=== PATIENT | female | born 1995 | race Caucasian/White ===

== ENCOUNTER → 2018-09-01 | Outpatient (CLI) | payer OTHER ==
[2018-09-01 13:50] LABS: BASO % 0.3 % (0.0-1.0); EOS # 0.1 10^3/uL (0.0-0.50); HEMATOCRIT 39.7 % (36.0-47.0); HEMOGLOBIN 12.9 g/dl (12.0-15.5); LYMPH # 2.1 10^3/uL (1.5-6.5); LYMPH % 29.9 % (24.0-44.0); MEAN CORPUSCULAR HGB CONC 32.5 g/dl (32.0-36.5); MEAN CORPUSCULAR VOLUME 86.3 fl (80.0-96.0); MONO # 0.5 10^3/uL (0.0-0.8); MONO % 6.6 % (0.0-5.0); NEUTROPHILS # 4.4 10^3/uL (1.8-7.7); NEUTROPHILS % 61.8 % (36.0-66.0); PLATELET COUNT, AUTOMATED 348 10^3/uL (150-450); WHITE BLOOD COUNT 7.1 10^3/uL (4.0-10.0)
[2018-09-01 13:58] LABS: ALT/SGPT 19 U/L (12-78); BILIRUBIN,TOTAL 0.3 MG/DL (0.2-1.0); BLOOD UREA NITROGEN 8 MG/DL (7-18); CALCIUM LEVEL 9.5 MG/DL (8.5-10.1); CARBON DIOXIDE LEVEL 25 MEQ/L (21-32); CHLORIDE LEVEL 105 MEQ/L (98-107); CHOLESTEROL LEVEL 154 MG/DL (<200); CREATININE FOR GFR 0.72 MG/DL (0.55-1.30); FERRITIN 21 NG/ML (8-252); FREE T4 1.29 NG/DL (0.76-1.46); GLOMERULAR FILTRATION RATE > 60.0 (>60); GLUCOSE, FASTING 83 MG/DL (70-100); HDL CHOLESTEROL 70 MG/DL (>40); IRON (FE) 109 UG/DL (50-170); LDL CHOLESTEROL 63 MG/DL (<100); NON-HDL-C 84 MG/DL; PERCENT SATURATION 24.7 % (13.2-45.0); POTASSIUM SERUM 3.8 MEQ/L (3.5-5.1); SODIUM LEVEL 137 MEQ/L (136-145); TOTAL IRON BINDING CAPACITY 442 UG/DL (250-450); TOTAL PROTEIN 7.5 GM/DL (6.4-8.2); TRIGLYCERIDES LEVEL 104 MG/DL (<150)
== END ==
LOC: M LRY 09:58
PROVIDERS: ATTEND Family Medicine
DX: Z13.29 Encounter for screening for other suspected endocrine disorder (principal)

== ENCOUNTER → 2018-11-25 | Outpatient (CLI) | payer OTHER ==
[~2018-11-25] MED LIST: ISOVUE-300 61% 100ML VIAL (Q9967) As Ordered ONE; MONOTAB PO; SERT-155 PO; TRAZ-252 PO
--- NOTE | 2018-11-25 16:35 | REP ---
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 Technique: Intravenous pyelogram study using 100 ml Isovue 300 intravenous contrast material. Findings: Multiple radiographs of the abdomen and pelvis to include the kidneys/ureters and bladder at 0 minutes, 5 minutes, and 10 minutes after the administration of intravenous contrast material demonstrates normal appearance and positioning of the bilateral kidneys/ureters and bladder. No congenital abnormality or malformation to the urinary tract is appreciated. Impression: Normal intravenous pyelogram study with normal appearance in positioning of the bilateral kidneys/ureters and bladder. Electronically Signed by Gabriele Franklin MD 11/25/2018 04:26 P
== END ==
LOC: M RAD 08:14
PROVIDERS: ATTEND Obstetrics & Gynecology
DX: Q52.8 Other specified congenital malformations of female genitalia (principal)
CPT/HCPCS: 74400; Q9967

== ENCOUNTER 2018-12-17 07:18 | Day surgery (SDC) | payer OTHER ==
[~2018-12-17] VITALS: Ht 167.6 cm; Wt 62.1 kg
[~2018-12-17 07:18] MED LIST changes: -ISOVUE-300 61% 100ML VIAL (Q9967) As Ordered ONE; +LIDOCAINE 1% MDV 20ML VIAL SQ PRN; +LR 1,000 ML IV ONE
[2018-12-17 08:00] LABS: URINE PREG TEST NEGATIVE (NEGATIVE)
[2018-12-17] MEDS ORDERED: PROPOFOL 200 MG/20 ML VIAL As Ordered ONE ×2 (08:19→08:21)
[2018-12-17] MEDS ORDERED: KETOROLAC 60 MG/2 ML VIAL (J1885) As Ordered ONE (08:21)
[2018-12-17] MEDS ORDERED: MIDAZOLAM INJ 2 MG/2 ML VIAL (J2250) As Ordered ONE (08:22)
[2018-12-17] MEDS ORDERED: ONDANSETRON 4MG/2ML VIAL (J2405) As Ordered ONE (08:22)
[2018-12-17] MEDS ORDERED: dexameTHASONE 4 MG/ML 1ML VIAL (J1100) As Ordered ONE (08:22)
[2018-12-17] MEDS ORDERED: LIDOCAINE 2% INJ 100 MG/5 ML SDV (FOR ANES.) As Ordered ONE (08:22)
[2018-12-17] MEDS ORDERED: fentaNYL 100 MCG/2 ML INJECTION (J3010) As Ordered ONE (08:23)
[2018-12-17] MEDS ORDERED: IBUPROFEN 600 MG TAB PO PRN ×2 (10:30→18:00)
[2018-12-17] MEDS ORDERED: fentaNYL 100 MCG/2 ML INJECTION (J3010) IV PRN (10:30)
[2018-12-17] MEDS ORDERED: ONDANSETRON 4MG/2ML VIAL (J2405) IV PRN (10:30)
[2018-12-17] MEDS ORDERED: PERCOCET 5MG/325MG TAB PO PRN (10:30)
[2018-12-17] MEDS ORDERED: LR 1,000 ML IV SCH ×2 (10:30)
[2018-12-17 11:00] VITALS: BP 117/73
--- NOTE | 2018-12-18 10:40 | RO ---
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 FINDINGS: As expected. Fortunately, the patient does not appear to have any other vaginal or cervical abnormalities. Exam under anesthesia found no evidence of vaginal septum. She had a single nulliparous cervix without lesion and the microperforate hymen as expected. PROCEDURE: Hymenectomy. SURGEON: Gail Munson MD FRINGE WEAVER: None. ANESTHESIA: Laryngeal mask airway (LMA). SPECIMENS: None. BRIEF DESCRIPTION OF PROCEDURE AND FINDINGS: Zoila was brought to the operating room where sufficient LMA anesthesia was induced. She was prepped, draped and positioned in the usual sterile fashion. We then grasped the microperforate hymen with a hemostat just to stabilize it so that we could then use the scalpel to make stellate incisions around the hymen being careful to free the hymenal tissue from the periurethral tissues, for instance, and not to place any of the incisions at 6 o'clock. So she had an incision at about 1:30, about 2:30 a little thicker there, about 4:30 and then about 7:00, 10:30. We took interrupted stitches of #4-0 Vicryl at the base of these for hemostasis. There was ones with longer pieces that we trimmed off, but by and large the purpose of course was to result in a functional stretchy tissue without giving an annular scar, so we made the stellate incisions, controlled the bleeding, examined and made sure that we had removed that restriction to stretching at the introitus. We then had a speculum in the room and did both a bimanual and a speculum exam. We were able to confirm a single nulliparous cervix without any visible anomaly. There were no evidence of vaginal septum and no evidence of pelvic mass, etc. Of course, we disposed of the speculum because we had not prepped the apex of the vagina as is appropriate. We then reevaluated and confirmed good hemostasis at our previous dissection and ended the case. ESTIMATED BLOOD LOSS FOR PROCEDURE: Maybe 5 mL. FLUID REPLACEMENT: Crystalloid. COMPLICATIONS: None. CONDITION AND DISPOSITION: Zoila tolerated the procedure well and was recovering in the recovery room in good condition.
== END 2018-12-17 11:25 | disposition home or self-care (01) ==
LOC: M SDC 07:18
PROVIDERS: ATTEND Obstetrics & Gynecology
DX: Q52.3 Imperforate hymen (principal); F41.9 Anxiety disorder, unspecified; F32.9 Major depressive disorder, single episode, unspecified; Z91.040 Latex allergy status; Z79.899 Other long term (current) drug therapy; F17.210 Nicotine dependence, cigarettes, uncomplicated
CPT/HCPCS: 56620; 84703; J1100; J1885; J2250; J2405; J3010

== ENCOUNTER → 2019-08-26 | Outpatient (REF) | payer OTHER ==
[~2019-08-26] MED LIST changes: -LIDOCAINE 1% MDV 20ML VIAL SQ PRN; -LR 1,000 ML IV ONE; -SERT-155 PO; +SERT50TA29 PO
[2019-08-26 21:20] LABS: CHLAMYDIA DNA AMPLIFICATION NEGATIVE (NEGATIVE); GC DNA AMPLIFICATION NEGATIVE (NEGATIVE)
== END ==
LOC: M SFHCWAGY 17:13
PROVIDERS: ATTEND Nurse Practitioner Family
DX: Z11.3 Encounter for screening for infections with a predominantly sexual mode of transmission (principal); Z12.4 Encounter for screening for malignant neoplasm of cervix
CPT/HCPCS: 87491; 87591; G0123; G0463

== ENCOUNTER → 2020-06-29 | Outpatient (CLI) | payer OTHER ==
[2020-06-29 11:07] LABS: BASO % 0.7 % (0.0-1.0); EOS # 0.1 10^3/uL (0.0-0.5); EOS % 2.4 % (0.0-3.0); HEMATOCRIT 40.1 % (36.0-47.0); LYMPH # 2.1 10^3/uL (1.5-5.0); LYMPH % 45.3 % (24.0-44.0); MEAN CORPUSCULAR HEMOGLOBIN 28.3 pg (27.0-33.0); MEAN CORPUSCULAR HGB CONC 32.4 g/dl (32.0-36.5); MEAN CORPUSCULAR VOLUME 87.2 fl (80.0-96.0); MONO # 0.4 10^3/uL (0.0-0.8); MONO % 8.6 % (0.0-5.0); PLATELET COUNT, AUTOMATED 307 10^3/uL (150-450); WHITE BLOOD COUNT 4.6 10^3/uL (4.0-10.0)
[2020-06-29 12:31] LABS: ALBUMIN 4.1 GM/DL (3.2-5.2); ALT/SGPT 19 U/L (12-78); BILIRUBIN,TOTAL 0.8 MG/DL (0.2-1.0); BLOOD UREA NITROGEN 8 MG/DL (7-18); CALCIUM LEVEL 9.8 MG/DL (8.5-10.1); CARBON DIOXIDE LEVEL 31 MEQ/L (21-32); CHLORIDE LEVEL 108 MEQ/L (98-107); CREATININE FOR GFR 0.83 MG/DL (0.55-1.30); FERRITIN 20 NG/ML (8-252); FREE T4 1.03 NG/DL (0.76-1.46); GLOMERULAR FILTRATION RATE > 60.0 (>60); GLUCOSE, FASTING 86 MG/DL (70-100); IRON (FE) 122 UG/DL (50-170); PERCENT SATURATION 32.9 % (13.2-45.0); SODIUM LEVEL 141 MEQ/L (136-145); TOTAL 25(OH) VITAMIN D 27.4 NG/ML (30.0-100.0); TOTAL IRON BINDING CAPACITY 371 UG/DL (250-450); TOTAL PROTEIN 7.2 GM/DL (6.4-8.2); VITAMIN B12 LEVEL 646 PG/ML (247-911)
== END ==
LOC: M LAB 10:32
PROVIDERS: ATTEND Family Medicine
DX: F39 Unspecified mood [affective] disorder (principal); Z13.0 Encounter for screening for diseases of the blood and blood-forming organs and certain disorders involving the immune mechanism; Z13.29 Encounter for screening for other suspected endocrine disorder

== ENCOUNTER → 2020-10-16 | Outpatient (CLI) | payer OTHER | LOC: M WUC 14:56 | PROVIDERS: ATTEND Registered Nurse | DX: Z11.3 Encounter for screening for infections with a predominantly sexual mode of transmission (principal); Z53.9 Procedure and treatment not carried out, unspecified reason ==